=== PATIENT | male | born 1965 | race Caucasian/White ===

== ENCOUNTER 2020-03-17 09:15 | Outpatient (CLI) | payer BC ==
--- NOTE | 2020-03-17 09:48 | ULT ---
BILATERAL RENAL ULTRASOUND: HISTORY: Acute renal failure. Elevated serum creatinine levels. FINDINGS: The right kidney measures 12.9 cm in length and the left kidney measures 11.7 cm in length. No focal mass or hydronephrosis is seen on either side. Cortical echogenicity and thickness is normal. The urinary bladder is unremarkable. IMPRESSION: Normal exam. POS: [facility]
== END 2020-03-17 09:16 | disposition home or self-care (01) ==
LOC: BICULT 09:15
PROVIDERS: ATTEND Internal Medicine Nephrology
DX: N17.9 Acute kidney failure, unspecified (principal)
CPT/HCPCS: 76770

== ENCOUNTER 2021-08-26 13:41 | Outpatient (CLI) | payer BC | END 2021-08-26 13:42 | disposition home or self-care (01) | LOC: BICRAD 13:41 | PROVIDERS: ATTEND Family Medicine | DX: R05 Cough (principal) | CPT/HCPCS: 71046 ==

== ENCOUNTER 2023-02-28 11:01 | Outpatient (CLI) | payer BC | END 2023-02-28 11:02 | disposition home or self-care (01) | LOC: LABBT 11:01 | PROVIDERS: ATTEND Otolaryngology Plastic Surgery within the Head & Neck | DX: Z01.810 Encounter for preprocedural cardiovascular examination (principal); J34.2 Deviated nasal septum; J34.3 Hypertrophy of nasal turbinates | CPT/HCPCS: 93005; 93010 ==

== ENCOUNTER 2023-03-02 09:38 | Day surgery (SDC) | payer BC ==
[2023-02-28 12:06] VITALS: BMI 30.1
[2023-03-02] MEDS ORDERED: Oxymetazoline HCl 0.05% (30 ML BOT) ONE (11:17)
[2023-03-02] MEDS ORDERED: fentaNYL PF 100 MCG/2 ML SYRINGE ONE (12:02)
[2023-03-02] MEDS ORDERED: Glycopyrrolate 0.2 MG/ML 5 ML SYRINGE ONE (12:29)
[2023-03-02] MEDS ORDERED: Ondansetron PF 4 MG/2 ML Vial ONE (12:29)
[2023-03-02] MEDS ORDERED: ePHEDrine Sulfate 50 MG/10 ML VIAL ONE (12:29)
[2023-03-02] MEDS ORDERED: NEOSTIGMINE 3 MG/3 ML SYR 3 MG/3 ML SYRINGE ONE (12:29)
[2023-03-02] MEDS ORDERED: PROPOFOL 200 MG/20 ML VIAL ONE (12:29)
[2023-03-02] MEDS ORDERED: Dexamethasone 20 MG/5 ML VIAL ONE (12:29)
[2023-03-02] MEDS ORDERED: Rocuronium Bromide 10 MG/ML (10ML VIAL) ONE (12:29)
== END 2023-03-02 14:49 | disposition home or self-care (01) ==
LOC: SDC 09:38
PROVIDERS: ATTEND Otolaryngology Plastic Surgery within the Head & Neck
PROC: 09SM0ZZ Reposition Nasal Septum, Open Approach (ICD-10-PCS; principal; 2023-03-02)
PROC: 095L0ZZ Destruction of Nasal Turbinate, Open Approach (ICD-10-PCS; principal; 2023-03-02)
DX: J34.2 Deviated nasal septum (principal); J34.3 Hypertrophy of nasal turbinates; J34.89 Other specified disorders of nose and nasal sinuses; H40.9 Unspecified glaucoma; K21.9 Gastro-esophageal reflux disease without esophagitis; Z79.899 Other long term (current) drug therapy
CPT/HCPCS: J1100; J2405; J2704